=== PATIENT | female | born 1950 | race Caucasian/White ===

== ENCOUNTER → 2019-08-08 11:26 | Outpatient (BNVA) | payer OTHER, SELFPAY | PROVIDERS: Family Provider Nurse Practitioner Family; PCP Nurse Practitioner Family; Visit Provider Nurse Practitioner Family | DX: I10 Essential (primary) hypertension (principal); E55.9 Vitamin D deficiency, unspecified; E78.5 Hyperlipidemia, unspecified; E11.9 Type 2 diabetes mellitus without complications; E03.9 Hypothyroidism, unspecified; J32.9 Chronic sinusitis, unspecified; B37.9 Candidiasis, unspecified; Z78.9 Other specified health status | CPT/HCPCS: 80053; 80061; 82306; 83036; 85025 ==

== ENCOUNTER 2019-12-19 14:51 | Outpatient (CLI) | payer OTHER, SELFPAY ==
--- NOTE | 2019-12-19 14:58 | MM_ITS ---
WS: [id number] SCREENING DIGITAL MAMMOGRAM WITH CAD HISTORY: SCREENING COMPARISON: 02/25/2019, 08/17/2018 and 07/27/2017 Bilateral CC and MLO views submitted. Computer aided detection analyzed. Breast composition: There are scattered areas of fibroglandular density. There are several nodules in the upper-outer quadrant of the LEFT breast. One nodule measuring 8 mm is enlarging. This nodule nee ds further evaluation. This nodule is posterior at the 2:00 axis. Biopsy clip in the 9:00 of the [facility] T breast. LEFT breast: Spot compression views (CC and MLO). True ML. Ultrasound to follow if abnormality kyle floyd. MM/[place] [id number] IMPRESSION: BI-RADS: 0-Incomplete: Need additional imaging evaluation FOLLOW UP: Need Additional Imaging
== END 2019-12-19 14:52 | disposition home or self-care (01) ==
LOC: RADSHAW 14:54
PROVIDERS: PCP Nurse Practitioner Family; Visit Provider Nurse Practitioner Family
DX: Z12.31 Encounter for screening mammogram for malignant neoplasm of breast (principal); N63.21 Unspecified lump in the left breast, upper outer quadrant
CPT/HCPCS: 77067

== ENCOUNTER 2019-12-30 10:13 | Outpatient (CLI) | payer OTHER, SELFPAY ==
--- NOTE | 2019-12-30 10:20 | US_ITS ---
WS: [id number] ADDITIONAL VIEWS LEFT MAMMOGRAM LEFT BREAST ULTRASOUND HISTORY: LT BREAST NODULE COMPARISON: 12/19/2019, 08/17/2018, 07/27/2017 and 08/30/2016 LEFT MAMMOGRAM: Spot compression views and true ML. High density nodule measuring 8 mm persists in the lateral LEFT breast near the 2-3 o'clock axis at a posterior depth. There are additional stable benign lymph nodes in this area. LEFT BREAST ULTRASOUND 2-D and color Doppler imaging submitted. Ultrasound directed to the lateral LEFT breast. At 3:00, 4 cm from the nipple is a cyst measuring 7 x 6 x 8 mm. Corresponds in size and location to the mammographic abnormality. Benign lymph node at 2:0 0 with a maximum diameter of 8 mm. US/US breast LT limited* [id number] IMPRESSION: BI-RADS: 2-Benign FOLLOW UP: 1 Year Follow-up
== END 2019-12-30 10:14 | disposition home or self-care (01) ==
LOC: RADSHAW 10:18
PROVIDERS: PCP Nurse Practitioner Family; Visit Provider Nurse Practitioner Family
DX: N63.21 Unspecified lump in the left breast, upper outer quadrant (principal)
CPT/HCPCS: 76642; 77065

== ENCOUNTER 2022-12-19 09:53 | Outpatient (CLI) | payer MEDICARE, SELFPAY ==
--- NOTE | 2022-12-19 10:04 | MM_ITS ---
WS: [id number] SCREENING DIGITAL BREAST TOMOSYNTHESIS MAMMOGRAM WITH CAD HISTORY: SCREENING COMPARISON: 12/30/2019, 12/19/2019 and 02/25/2019 Bilateral CC and MLO with tomosynthesis and synthetic mammography submitted. Computer aided detection analyzed. Breast composition: There are scattered areas of fibroglandular density. 2 well-circumscribed and sli ghtly lobulated mass in the anterior LEFT breast near 9:00. Maximum diameter of 5 mm. The remaining n odules are stable. Prior biopsy clip lateral posterior RIGHT breast. MM/[place] [id number] IMPRESSION: BI-RADS: 0-Incomplete: Need additional imaging evaluation FOLLOW UP: Need Additional Imaging Recommendation: Limited LEFT breast ultrasound. Ultrasound directed to the medi al anterior LEFT breast near 9:00.
== END 2022-12-19 09:54 | disposition home or self-care (01) ==
PROVIDERS: PCP Nurse Practitioner Family; Visit Provider Nurse Practitioner Family
DX: Z12.31 Encounter for screening mammogram for malignant neoplasm of breast (principal)
CPT/HCPCS: 77063; 77067

== ENCOUNTER 2023-01-02 08:42 | Outpatient (CLI) | payer MEDICARE, SELFPAY ==
--- NOTE | 2023-01-02 08:57 | US_ITS ---
WS: [id number] ULTRASOUND LEFT BREAST HISTORY: ABNORMAL MAMMO COMPARISON: Mammogram 12/19/2022 and prior ultrasound 12/28/2019 TECHNIQUE: 2-D and Doppler. New lobulated mass in the LEFT breast is localized to 8:00, at the areolar. This mass is minimally co mplex measuring 4 x 6 x 4 mm corresponds in shape and size to the mammographic abnormality. US/US breast LT limited* [id number] IMPRESSION: BI-RADS: 2-Benign FOLLOW-UP: 1 Year Follow-up Return to annual screening mammography. Mammographic mass corresponds to a cyst .
== END 2023-01-02 08:43 | disposition home or self-care (01) ==
LOC: RAD 08:47
PROVIDERS: PCP Nurse Practitioner Family; Visit Provider Nurse Practitioner Family
DX: R92.8 Other abnormal and inconclusive findings on diagnostic imaging of breast (principal); N63.42 Unspecified lump in left breast, subareolar
CPT/HCPCS: 76642